=== PATIENT | male | born 1945 | race Caucasian/White ===

== ENCOUNTER 2017-02-23 09:09 | Day surgery (SDC) | payer OTHER ==
--- NOTE | ~2017-02-23 | EGD ---
EGD REPORT [facility] [address] [place] [place] [address] NAME: KESHAWN MARCUS : [birth year] STATUS : REG [facility]#: [id number] AGE: 71 ADM/REG DATE : 02/23/17 MR#: [id number] REPORT SERV DATE: 02/23/17 DICTATED BY: CLAUDY CASON DATE: 02/23/17 REPORT STATUS : Draft TRANSCRIBED BY: [facility] DATE: 02/23/17 [facility] Patient Name: Keshawn Marcus Date of : 1945 Attending MD: RANJEET CASON MD Procedure Date No Time: 02/23/2017 Procedure: Colonoscopy Indications: Screening in patient at increased risk: Colorectal cancer in mother before age 60, Last colonoscopy: 2010 Referring MD: Marco Rasmussen, VIPIN Matthews Medicines: See the Anesthesia note for documentation of the administered medications Complications: No immediate complications. Estimated blood loss: None. Procedure: Pre-Anesthesia Assessment: - ASA Grade Assessment: IV - A patient with severe systemic disease that is a constant threat to life. - Prior to the procedure, a History and Physical was performed, and patient medications and allergies were reviewed. The patient's tolerance of previous anesthesia was also reviewed. The risks and benefits of the procedure and the sedation options and risks were discussed with the patient. All questions were answered, and informed consent was obtained. Prior Anticoagulants: The patient has taken no previous anticoagulant or antiplatelet agents. After reviewing the risks and benefits, the patient was deemed in satisfactory condition to undergo the procedure. After I obtained informed consent, the scope was passed under direct vision. Throughout the procedure, the patient's blood pressure, pulse, and oxygen saturations were monitored continuously. The PCF [id number] was introduced through the anus and advanced to the cecum, identified by appendiceal orifice and ileocecal valve. The ileocecal valve, appendiceal orifice and rectum were photographed. The entire colon was examined. The colonoscopy was performed without difficulty. The patient tolerated the procedure well. The quality of the bowel preparation was adequate. Findings: The perianal and digital rectal examinations were normal. Multiple medium-mouthed diverticula were found in the entire colon. Diverticulitis with some purulence at 20 cms - Bx Non-bleeding internal hemorrhoids were found during retroflexion and were Grade I (internal hemorrhoids that do not prolapse). EGD REPORT [address] [place]. [address] NAME: KESHAWN MARCUS JR : [birth year] STATUS : REG [facility] [place] PAT#: [id number] AGE: 71 ADM/REG DATE : 02/23/17 MR#: [id number] REPORT SERV DATE: 02/23/17 DICTATED BY: CLAUDY CASON DATE: 02/23/17 REPORT STATUS : Draft TRANSCRIBED BY: [email or web address] DATE: 02/23/17 No other significant abnormalities were identified in a careful examination of the remainder of the colon. Impression: - Diverticulosis in the entire examined colon. - Diverticulitis with some purulence at 20 cms - Bx - Non-bleeding internal hemorrhoids. Recommendation: - Patient has a contact number available for emergencies. The signs and symptoms of potential delayed complications were discussed with the patient. Return to normal activities tomorrow. Written discharge instructions were provided to the patient. - High fiber diet indefinitely. - Discharge patient to home. - Continue present medications. - Await pathology results. - Repeat colonoscopy in 5 years for surveillance. Procedure Code(s): --- Professional --- 56872, Colonoscopy, flexible, proximal to splenic flexure; diagnostic, with or without collection of specimen(s) by brushing or washing, with or without colon decompression (separate procedure) Diagnosis Code(s): --- Professional --- K64.0, First degree hemorrhoids K57.30, Diverticulosis of large intestine without perforation or abscess without bleeding Z12.11, Encounter for screening for malignant neoplasm of colon Z80.0, Family history of malignant neoplasm of digestive organs CPT copyright 2013 [employer]. All rights reserved. The codes documented in this report are preliminary and upon collaborative teacher review may be revised to meet current compliance requirements. RANJEET CASON MD 02/23/2017 10:43 AM This report has been signed electronically. Number of Addenda: 0 Note Initiated On: 02/23/2017 10:04 AM Scope Withdrawal Time 0 hours 19 minutes 43 seconds EGD REPORT [facility] [address] [place] [address] NAME: KESHAWN MARCUS : [birth year] STATUS : REG [facility]#: [id number] AGE: 71 ADM/REG DATE : 02/23/17 MR#: [id number] REPORT SERV DATE: 02/23/17 DICTATED BY: CLAUDY CASON DATE: 02/23/17 REPORT STATUS : Draft TRANSCRIBED BY: [email or web address] DATE: 02/23/17 [id number] [place] [id number]
[~2017-02-23 09:09] MED LIST: ACET500CAP PO; ALBUTEROL0.63 MG/3 INH; ALIGN4 MG PO; ALLEGRA180 PO; AMB10 PO; AMITIZA24 PO; AMOXIL500C PO; ASAB PO; ASMANEX 30110 MCG NAS; ASTEPRO0.15 % NAS; ATRONASAL3 NAS; AVAP150 PO; C2 PO; CIP5 PO; CLOBETASOL E0.05 % TOP; CLOBETASOL0.051 EX; COZ25 PO; CYPROHEPTAD4 MG OR; DEXAMETHASON1 MG PO; DSS PO; EMLA TOP; FISH-EPA1000 MG PO; FLOMAX4 PO; FLONASE NAS; FOLBEE PLU1 OR; FOLBEE PLU1 PO; FOLBIC; FOLBIC PO; FOLIC PO; HALF81 PO; IMDUR60 PO; IMOD PO; IRON OTC PO; L80 PO; LANTUS SC; LEVAQUIN5T PO; LEVEMIR SC; LINZESS 290 M290 MCG PO; LIPITOR40 PO; LOP100 PO; LOP50 PO; MAGNESIUM PO; MAGONATE PO; MAGOX4 PO; MAXIMUM D3 PO; MIRALAXPKT PO; NEUR100 PO; NITROII20C TOP; NITROII30C TOP; NITROSTAT0.4 MG SL; NORV10 PO; NORV5 PO; NOVOLOG SC; NTG150 SL; PHOSLO PO; PLAVIX PO; PRAVACHOL40 MG PO; PREV30 PO; PRILO PO; PROAIR HFA INH; PROBIOTIC PO; PROSCAR5 PO; REG5 PO; REM15 PO; ROCALTROL 0.0.25 MCG OR; STOOL SOFTEN100 MG PO; TOPXL100 PO; ULORIC PO; X5 PO; XYZAL5 MG PO; Z100 PO; [UNRECOGNIZED DRUG - OTHER]; [UNRECOGNIZED DRUG - OTHER]; [UNRECOGNIZED DRUG - OTHER] PO; [UNRECOGNIZED DRUG - OTHER] PO; [UNRECOGNIZED DRUG - OTHER] TOP; [UNRECOGNIZED DRUG - REMARK] OR
[2017-02-23 09:57] LABS: BUN (BLOOD UREA NITROGEN) 25 MG/DL (6-23); CHLORIDE, SERUM 104 MMOL/L (96-112); CO2 (CARBON DIOXIDE) 30 MMOL/L (24-34); CREATININE 3.81 MG/DL (0.70-1.30); GFR AFRICAN AMERICAN 17 ML/MIN (>=60); GFR NON AFRICAN AMERICAN 15 ML/MIN (>=60); GLUCOSE, SERUM 113 MG/DL (60-99); POTASSIUM, SERUM 4.4 MMOL/L (3.5-5.3); SODIUM, SERUM 142 MMOL/L (135-148)
== END 2017-02-23 23:59 | disposition home or self-care (01) ==
LOC: DMU 09:09
PROVIDERS: Anesthesiology; Internal Medicine Gastroenterology
PROC: 0DJD8ZZ Inspection of Lower Intestinal Tract, Via Natural or Artificial Opening Endoscopic (ICD-10-PCS; principal; 2017-02-23 10:30)
DX: Z12.11 Encounter for screening for malignant neoplasm of colon (principal); K57.30 Diverticulosis of large intestine without perforation or abscess without bleeding; K64.0 First degree hemorrhoids; I25.10 Atherosclerotic heart disease of native coronary artery without angina pectoris; E11.22 Type 2 diabetes mellitus with diabetic chronic kidney disease; I12.0 Hypertensive chronic kidney disease with stage 5 chronic kidney disease or end stage renal disease; I25.2 Old myocardial infarction; N18.6 End stage renal disease; Z95.1 Presence of aortocoronary bypass graft; Z80.0 Family history of malignant neoplasm of digestive organs; Z88.8 Allergy status to other drugs, medicaments and biological substances
CPT/HCPCS: 80048; 88305